=== PATIENT | male | born 1975 | race African-American/Black ===

== ENCOUNTER 2017-06-13 06:39 | Day surgery (SDC) | payer MEDICARE, MEDICAID ==
[2017-06-06 10:36] LABS: HEMATOCRIT 48.2 % (37.9-51.0); HEMOGLOBIN 15.8 g/dL (13.5-17.0); MEAN CORPUSCULAR HEMOGLOBIN 27.8 pg (27.0-33.4); MEAN CORPUSCULAR HGB CONC 32.8 g/dL (32.0-36.0); MEAN CORPUSCULAR VOLUME 85 fl (80-97); RED BLOOD COUNT 5.69 10^6/uL (4.35-5.55); RED CELL DISTRIBUTION WIDTH 16.2 % (11.5-14.0); WHITE BLOOD COUNT 5.7 10^3/uL (4.0-10.5)
[2017-06-06 11:01] LABS: PLATELET COUNT 210 10^3/uL (150-450)
[~2017-06-13 06:39] MED LIST: CEFAZOLIN 1 GM/D5W RTU 1 GM/50 ML RTUPB IV PRN; LACTATED RINGERS 1000 ML IV PRN; LIDOCAINE 0.5% INJ-PF (5 MG/ML) 50 ML SDV SUBCUT PRN
[2017-06-13] MEDS ORDERED: LIDOCAINE 1%/EPINEPHRINE INJ 20 ML VIAL ONE (06:49)
[2017-06-13] MEDS ORDERED: KETAMINE HCL INJ 500 MG/10 ML VIAL ONE (08:44)
[2017-06-13] MEDS ORDERED: FENTANYL CITRATE INJ/PF 100 MCG/2 ML AMPUL ONE (08:44)
[2017-06-13] MEDS ORDERED: MIDAZOLAM 2 MG/2 ML INJ ONE (08:44)
[2017-06-13] MEDS ORDERED: EPHEDRINE SULFATE INJ 50 MG/1 ML AMPULE ONE (08:44)
[2017-06-13] MEDS ORDERED: ACETAMINOPHEN 100 ML IV ONE (08:45)
[2017-06-13] MEDS ORDERED: PROPOFOL INJ 200 MG/20 ML VIAL IV ONE (08:45)
[2017-06-13] MEDS ORDERED: MEPERIDINE HCL/PF INJ 25 MG/1 ML DISP.SYRIN IV PRN (09:14)
[2017-06-13] MEDS ORDERED: PROMETHAZINE HCL INJ 25 MG/1 ML VIAL IV PRN ×2 (09:14)
[2017-06-13] MEDS ORDERED: FENTANYL CITRATE INJ/PF 100 MCG/2 ML AMPUL IV PRN ×3 (09:14)
[2017-06-13] MEDS ORDERED: DIPHENHYDRAMINE HCL 50 MG/ML VIAL IV PRN (09:14)
[2017-06-13] MEDS ORDERED: ONDANSETRON HCL INJ/PF 4 MG/2 ML SDV IV PRN ×2 (09:14→09:34)
[2017-06-13] MEDS ORDERED: OXYCODONE-ACETAMINOPHEN 5-325 MG TABLET PO PRN (09:34)
--- NOTE | 2017-06-13 09:34 | Discharge Summary ---
Discharge Summary (SDC) - Discharge Final Diagnosis: Lipomas of left and right upper arms Date of Surgery: 06/13/17 Discharge Date: 06/13/17 Condition: Stable Treatment or Instructions: Wound Care: Do not get incision sites wet for 48 hours. After 48 hours, you may shower leaving steri strips (paper bandaids) in place. Warm water and soap may wash over the area. Do not scrub. Pat dry. Cover if needed. Pain Management: You may take Toradol 10mg one pill by mouth every six hours as needed for pain. Follow Up: Follow up at [facility] with Steff Schultz PA-C in 7-10 days. Call clinic sooner with questions/concerns or if area is swelling, unusual bleeding, foul-smelling drainage. [phone] Prescriptions: Ketorolac Tromethamine [Toradol 10 mg Tablet] 10 mg PO Q6HP PRN #20 tablet PRN Reason: Referrals: JADE TENA MD [Primary Care Provider] - Discharge Diet: As Tolerated Discharge Activity: Walk Frequently Report the Following to Your Physician Immediately: Increase in Pain, Fever over 101 Degrees, Unusual Bleeding, Redness, Drainage-Foul Smelling
--- NOTE | 2017-06-13 09:40 | Operative Report ---
Operative Report DATE OF SURGERY: 06/13/17 PREOPERATIVE DIAGNOSIS: multiple lipomas POSTOPERATIVE DIAGNOSIS: Same OPERATION: Complete excision of right arm lipomas 2 left arm lipoma 1 SURGEON: BRIAN RIVAS 1ST LITHOGRAPHIC STRIPPER: JAD ZENDEJAS ANESTHESIA: LMAC TISSUE REMOVED OR ALTERED: Lipomas COMPLICATIONS: See below ESTIMATED BLOOD LOSS: Scant INTRAOPERATIVE FINDINGS: See below PROCEDURE: Patient was in the preop holding area with the 2 lipomas of the right arm and one lipoma the left arm were marked, and antimicrobial applied. The patient was taken the main operating room where LMAC anesthesia was induced. Arms abducted, and target tissue exposed. Right arm and left arm prepped and draped sterile fashion with Betadine Surgical plan surgical timeout were conducted Affected skin anesthetized with some plain lidocaine. All 2 cm incisions were made over the lipomas of the right upper extremity of the elbow, and the left upper extremity above the elbow. SubCutaneous mass consistent with lipoma were removed in their entirety using a combination of hemostat and scissor dissection. Specimens were sent to pathology in one container labeled lipomas Hemostasis was achieved with gentle compression, wounds closed with 3-0 Vicryl, benzoin, Steri-Strips. Dressings applied. Patient tolerated the procedure well, taken recovery in stable condition. The physician assistant manager, Ms. Navarrete, provided assistance during this case by: Assisting, retracting tissue, instillation of local anesthesia and closure of skin incisions.
[2017-06-13] MEDS ORDERED: GLYCOPYRROLATE INJ 0.4 MG/2 ML VIAL ONE (10:57)
[2017-06-13] MEDS ORDERED: METOCLOPRAMIDE HCL INJ/PF 10 MG/2 ML SDV ONE (10:57)
[2017-06-13] MEDS ORDERED: DEXAMETHASONE SOD PHOSPHATE INJ 4 MG/1 ML VIAL ONE (10:57)
[2017-06-13] MEDS ORDERED: LIDOCAINE 2% INJ-PF (20 MG/ML) 2 ML AMPUL ONE (10:57)
[2017-06-13 11:41] VITALS: BP 134/91
== END 2017-06-13 11:45 | disposition home or self-care (01) ==
LOC: OROUT 06:39
PROVIDERS: ATTEND Surgery
DX: D17.22 Benign lipomatous neoplasm of skin and subcutaneous tissue of left arm (principal); D17.21 Benign lipomatous neoplasm of skin and subcutaneous tissue of right arm
CPT/HCPCS: 36415; 85027; 88304 ×2; 11406; J2250; J0690; J1100; J3010; J3490 ×3; J2765; J2704; J0131; 400

== ENCOUNTER 2020-02-06 18:54 | Inpatient (IN) | payer MEDICARE, MEDICAID ==
--- NOTE | 2020-02-06 19:06 | ER Document Report ---
ED Medical Screen (RME) - General Chief Complaint: Syncope Stated Complaint: POSSIBLE SYNCOPE/FALL Time Seen by Provider: 02/06/20 19:02 Primary Care Provider: JADE TENA MD [Primary Care Provider] - Follow up as needed Mode of Arrival: Wheelchair Information source: Patient Notes: 45-year-old male presented to ED for complaint of severe shortness of breath n ear syncope. He states he was moving some stuff upstairs and also he was completely short of breath and felt like he was going to pass out. He also has pain to his left posterior calf. He states he was going up and down some stairs and he has been sedentary laying on the couch for a while. Patient is alert and oriented but is very diaphoretic. Her I have put EKG troponin and venous Doppler and at this time. I have let the area secretary know that I put in a venous Doppler at 7:05 PM. I have greeted and performed a rapid initial assessment of this patient. A comprehensive ED assessment and evaluation of the patient, analysis of test results and completion of medical decision making process will be conducted by an additional ED providers. TRAVEL OUTSIDE OF THE [place] IN LAST 30 DAYS: No - Related Data Allergies/Adverse Reactions: No Known Allergies Allergy (Unverified 06/06/17 08:44) Past Medical History - Past Medical History Cardiac Medical History: Denies: Hx Coronary Artery Disease, Hx Heart Attack, Hx Hypertension Pulmonary Medical History: Denies: Hx Asthma, Hx Bronchitis, Hx COPD, Hx Pneumonia Neurological Medical History: Denies: Hx Cerebrovascular Accident, Hx Seizures Musculoskeltal Medical History: Denies Hx Arthritis - Immunizations Hx Diphtheria, Pertussis, Tetanus Vaccination: Yes - 2014 Doctor's Discharge - Discharge Referrals: JADE TENA MD [Primary Care Provider] - Follow up as needed
[2020-02-06 20:45] LABS: ABSOLUTE LYMPHOCYTES (AUTO) 1.2 10^3/uL (0.5-4.7); ABSOLUTE MONOCYTES (AUTO) 0.4 10^3/uL (0.1-1.4); ABSOLUTE NEUT (AUTO) 1.9 10^3/uL (1.7-8.2); BASOPHILS % (AUTO) 0.5 % (0-2); EOSINOPHILS % (AUTO) 0.9 % (0-6); HEMATOCRIT 49.4 % (37.9-51.0); LYMPHOCYTES % (AUTO) 33.8 % (13-45); MEAN CORPUSCULAR HEMOGLOBIN 27.1 pg (27.0-33.4); MEAN CORPUSCULAR HGB CONC 32.5 g/dL (32.0-36.0); MEAN CORPUSCULAR VOLUME 84 fl (80-97); MONOCYTES % (AUTO) 10.5 % (3-13); PLATELET COUNT 152 10^3/uL (150-450); RED BLOOD COUNT 5.91 10^6/uL (4.35-5.55); RED CELL DISTRIBUTION WIDTH 16.2 % (11.5-14.0); SEGMENTED NEUTROPHILS % (AUTO) 54.3 % (42-78); TOTAL CELLS COUNTED % (AUTO) 100 %; WHITE BLOOD COUNT 3.5 10^3/uL (4.0-10.5)
[2020-02-06 20:59] LABS: ALBUMIN 4.7 g/dL (3.5-5.0); ALKALINE PHOSPHATASE 133 U/L (38-126); ANION GAP 13 (5-19); ASPARTATE AMINO TRANSFERASE 26 U/L (17-59); BILIRUBIN,DIRECT 0.1 mg/dL (0.0-0.4); BILIRUBIN,TOTAL 0.5 mg/dL (0.2-1.3); BLOOD UREA NITROGEN 10 mg/dL (7-20); CALCIUM 9.8 mg/dL (8.4-10.2); CARBON DIOXIDE 26 mmol/L (22-30); CHLORIDE 101 mmol/L (98-107); CREATINE KINASE 109 U/L (55-170); GLUCOSE 107 mg/dL (75-110); POTASSIUM 4.3 mmol/L (3.6-5.0)
[2020-02-06 21:10] LABS: CREATINE KINASE MB < 0.22 ng/mL (<4.55); TROPONIN I < 0.012 ng/mL
--- NOTE | 2020-02-06 21:30 | RADIOLOGY REPORT (SQ) ---
EXAM DESCRIPTION: VENOUS UNILATERAL LOWER CLINICAL HISTORY: 45 years Male; left calf pain TECHNIQUE: Multiple grayscale sonographic images of the leg were obtained utilizing a high-frequency linear array transducer supplemented with color Doppler, compression and augmentation techniques. COMPARISON: None. FINDINGS: Left leg veins: There is normal compression and augmentation as well as color flow in the common femoral vein, the profunda femoral vein in the proximal femoral vein. In the distal thigh there is hypoechoic noncompressible thrombus which becomes occlusive. This extends into the popliteal vein and into a gastrocnemius vein. Posterior tibial and peroneal veins are also noncompressible. This appears to extend to the lower leg. IMPRESSION: Acute DVT beginning in the left distal femoral vein and involving the popliteal vein and the calf veins. Preliminary results was given to the charge nurse by the certified neurodiagnostic technologist 02/06/2020 at 2011 hours.
--- NOTE | 2020-02-06 22:52 | ER Document Report ---
ED General - General Chief Complaint: Passed Out Prior to Arrival Stated Complaint: POSSIBLE SYNCOPE/FALL Time Seen by Provider: 02/06/20 19:02 Primary Care Provider: JADE TENA MD [ACTIVE STAFF] - Follow up as needed Mode of Arrival: Wheelchair TRAVEL OUTSIDE OF THE [place] IN LAST 30 DAYS: No - HPI Notes: Patient is a 45-year-old male with a past medical history of hypertension who presents with syncope and left leg pain. Patient is a very poor historian. He states that he has had left leg pain and swelling for a while and he has been doing warm compresses. Today, he was carrying water bottles up the stairs and passed out. He states he hit his head on the concrete. There is no laceration or bruising on his head. Patient is not on any blood thinners. He states he had shortness of breath earlier today. No cough. - Related Data Allergies/Adverse Reactions: No Known Allergies Allergy (Unverified 06/06/17 08:44) Past Medical History - General Information source: Patient - Social History Smoking Status: Never Smoker Chew tobacco use (# tins/day): No Frequency of alcohol use: None Drug Abuse: None Family History: Reviewed & Not Pertinent Patient has homicidal ideation: No - Past Medical History Cardiac Medical History: Denies: Hx Coronary Artery Disease, Hx Heart Attack, Hx Hypertension Pulmonary Medical History: Denies: Hx Asthma, Hx Bronchitis, Hx COPD, Hx Pneumonia Neurological Medical History: Denies: Hx Cerebrovascular Accident, Hx Seizures Musculoskeletal Medical History: Denies Hx Arthritis - Immunizations Hx Diphtheria, Pertussis, Tetanus Vaccination: Yes - 2014 Review of Systems - Review of Systems Notes: CONSTITUTIONAL: No fever, fatigue or weight loss. SKIN: No rash. HENT: No congestion, ear pain, or sore throat. EYES: No recent vision problems or eye pain. CARDIOVASCULAR: No chest pain or edema. RESPIRATORY: Positive shortness of breath. No cough. GASTROINTESTINAL: No abdominal pain, nausea, vomiting GENITOURINARY: No dysuria. MUSCULOSKELETAL: Pain to left calf. NEUROLOGIC: No seizures. No focal weakness or sensory changes. Positive for headache. HEMATOLOGIC: No unusual bruising or bleeding. PSYCHIATRIC: No depression or anxiety. Physical Exam - Vital signs Vitals: Resp Pulse Ox 20 96 02/06/20 20:22 02/06/20 20:22 - General General appearance: Appears well Notes: VITAL SIGNS: Mild tachycardia. GENERAL: No acute distress, non-toxic appearance. HEAD: Normal with no signs of head trauma. EYES: Conjunctiva normal, no discharge. EARS: Hearing grossly intact. NOSE: Normal. NECK: Normal range of motion, no tenderness, supple, no lymphadenopathy, No adenopathy, no JVD. CHEST: Clear breath sounds bilaterally. No wheezes, rales, or rhonchi. CARDIAC: Regular rate and rhythm. S1 and S2, without murmurs, gallops, or rubs. VASCULAR: Tenderness to left posterior calf with erythema. No significant swelling. Pulses normal. ABDOMEN: Normal and soft with no tenderness GENITOURINARY: Normal, No tenderness MUSCULOSKELETAL: Good range of motion of all major joints. Extremities without clubbing, cyanosis or edema. NEUROLOGICAL: Alert and oriented x 3. No focal sensory or strength deficits. Speech normal. Follows commands appropriately. PSYCHIATRIC: Normal Affect, judgement and mood. SKIN: Normal appearance with no rashes or lesions. Course - Re-evaluation Re-evalutation: 02/07/20 02:59 Patient has a DVT. He states he was short of breath today and passed out. I ordered a CTA to rule out PE immediately. Patient has some mild tachycardia. He is on room air with O2 saturations in the 90s. Patient also had a head CT as he states he had syncope today. Patient CTA shows a pulmonary embolism. I immediately ordered heparin bolus and drip. I discussed with Ceci and [facility]. They were both on regional diversion and are not taking transfers. I then called [facility] and talked to the hospitalist. He states that I need to speak with IR first as he will not take the patient unless he needs to have some kind of procedure. I spoke with Dr. Rand from IR who reviewed the imaging. He did not think that patient had any right heart strain. He did not think that he needed any acute intervention. I discussed all this with the hospitalist who recommended that I also call Vascular. I discussed with Dr. Pate from vascular who also stated that he likely does not need any acute intervention. Patient continues to be on room air with pulse ox in the mid 90s. I informed him of all the results. I also discussed with his mother on the phone. Patient will be admitted. - Vital Signs Vital signs: Temp Pulse Resp BP Pulse Ox 19 119/103 H 97 02/07/20 02:01 02/07/20 02:01 02/07/20 02:01 - Laboratory Result Diagrams: 02/06/20 20:15 02/06/20 20:15 Laboratory results interpreted by me: 02/06/20 02/06/20 20:15 20:15 WBC 3.5 L RBC 5.91 H RDW 16.2 H Alkaline Phosphatase 133 H - Diagnostic Test Radiology reviewed: Image reviewed, Reports reviewed - EKG Interpretation by Me EKG shows normal: Sinus rhythm Rate: Tachycardia Rhythm: NSR Additional EKG results interpreted by me: 02/06/20 22:54 Sinus tachycardia at a rate of 110. QTc 466. No acute ST changes. No previous EKG available for comparison. Discharge - Discharge Clinical Impression: Saddle pulmonary embolus Qualifiers: Chronicity: acute Acute cor pulmonale presence: unspecified Qualified Code(s): I26.92 - Saddle embolus of pulmonary artery without acute cor pulmonale Syncope Qualifiers: Syncope type: unspecified Qualified Code(s): R55 - Syncope and collapse Left femoral vein DVT Qualifiers: Chronicity: acute Qualified Code(s): I82.412 - Acute embolism and thrombosis of left femoral vein Condition: Serious Disposition: ADMITTED INPATIENT Admitting Provider: Tom (Hospitalist) Unit Admitted: IMCU Referrals: JADE TENA MD [ACTIVE STAFF] - Follow up as needed
[2020-02-06] MEDS ORDERED: MORPHINE SULFATE 10 MG/ML INJ IV ONE (23:19)
[2020-02-06 23:54] LABS: INTERNATIONAL RATION (INR) 1.03; PROTHROMBIN TIME 13.7 SEC (11.4-15.4)
--- NOTE | 2020-02-06 23:56 | RADIOLOGY REPORT (SQ) ---
EXAM DESCRIPTION: CT HEAD WITHOUT IV CONTRAST COMPLETED DATE/TME: 02/06/2020 23:39 CLINICAL HISTORY: fall, head injury COMPARISON: None available TECHNIQUE: Axial CT of the head obtained from the skull apex to the skull base without contrast. FINDINGS: No acute intracranial hemorrhage identified. No mass, mass effect, shift of the midline, abnormal extra-axial fluid collection or CT evidence of acute ischemic change identified. The ventricular system is unremarkable. No acute abnormalities of the supratentorial white matter, basal ganglia, cerebellum, or brainstem. The visualized paranasal sinuses and the mastoid air cells are relatively well aerated. No skull fracture identified. Visualized orbits and globes are unremarkable. IMPRESSION: 1. No acute intracranial abnormality identified. This exam was performed according to our departmental dose-optimization program, which includes automated exposure control, adjustment of the mA and/or kV according to patient size and/or use of iterative reconstruction technique.
--- NOTE | 2020-02-07 00:08 | RADIOLOGY REPORT (SQ) ---
EXAM DESCRIPTION: CT CHEST ANGIOGRAPHY WITHOUT THEN WITH IV CONTRAST COMPLETED DATE/TME: 02/06/2020 23:39 EXAM DESCRIPTION: CTA CHEST CLINICAL HISTORY: left DVT, syncope, and sob COMPARISON: None Available. TECHNIQUE: CTA of the chest obtained following the uncomplicated intravenous administration of 85 mL Omnipaque 350. 3-D/MIP reformatted images of the chest available for evaluation. FINDINGS: Chest: Pulmonary arteries: Contrast bolus is adequate. Saddle pulmonary embolus with extensive pulmonary emboli throughout the main, left, right, lobar, segmental, and subsegmental pulmonary arterial branches. Dilation of the main pulmonary artery could be seen with pulmonary arterial hypertension. Thyroid:No abnormalities of the visualized thyroid. Great Vessels:Great vessels have normal anatomic configuration. Thoracic Aorta:No abnormalities of the thoracic aorta identified. Heart:No cardiomegaly, significant pericardial effusion, or coronary artery atherosclerosis. Mild flattening of the intraventricular septum and may indicate mild right heart strain. Lymph Nodes:No enlarged mediastinal lymph nodes identified. Esophagus:No abnormalities of the esophagus identified. Other:No additional findings. Lungs:No airspace opacities identified. Pleura:No pleural effusion or pneumothorax. Trachea/Airways:No abnormalities of the visualized trachea or airways. Bones:No destructive osseous lesions. Upper Abdomen:Limited images of the upper abdomen demonstrate no definite abnormalities of visualized portions of the liver, gallbladder, pancreas, spleen, adrenal glands, or kidneys. IMPRESSION: 1. Saddle pulmonary embolus with extensive clot burden throughout the pulmonary arteries. Mild right heart strain. This exam was performed according to our departmental dose-optimization program, which includes automated exposure control, adjustment of the mA and/or kV according to patient size and/or use of iterative reconstruction technique.
[2020-02-07] MEDS ORDERED: HEPARIN SOD (PORCINE) 1,000 UNIT/ML 10 ML VIAL IV ONE (00:19)
[2020-02-07] MEDS: HEPARIN SODIUM,PORCINE/D5W 25,000 UNIT/250 ML RTUINJ IV PRN ×2 (01:17→16:35)
[2020-02-07] MEDS ORDERED: ACETAMINOPHEN 325 MG TABLET PO PRN (03:14)
[2020-02-07] MEDS ORDERED: ONDANSETRON 4 MG TAB.RAPDIS PO PRN (03:14)
[2020-02-07] MEDS ORDERED: ONDANSETRON HCL INJ/PF 4 MG/2 ML SDV IV PRN (03:14)
[2020-02-07 03:16] LABS: APPEARANCE,URINE CLEAR; BILIRUBIN,URINE NEGATIVE (NEGATIVE); COLOR,URINE YELLOW; GLUCOSE, URINE NEGATIVE (NEGATIVE); KETONES,URINE 80 mg/dL (NEGATIVE); LEUKOCYTE ESTERASE,URINE NEGATIVE (NEGATIVE); NITRITE,URINE NEGATIVE (NEGATIVE); PROTEIN,URINE NEGATIVE (NEGATIVE)
[2020-02-07] MEDS ORDERED: HEPARIN SOD (PORCINE) 1,000 UNIT/ML 10 ML VIAL IV PRN (03:25)
--- NOTE | 2020-02-07 03:25 | PDOC H&P ---
History of Present Illness Admission Date/PCP: 02/07/20 02:15 History of Present Illness: JEFF PRESSLEY is a 45 year old male with past medical history significant for hypertension who presents with a 1 week history of progressive left lower extremity pain and edema/nausea/vomiting/shortness of breath/episodic syncope. Patient found to have saddle PE and extensive left lower extremity DVT clot burden on CTPA and left lower extremity PVL respectively. Patient denies any history of clots in the past denies any family history of clots. He denies any medical history whatsoever except for hypertension and does not take any medications for this. Per my request, ED physician spoke with vascular surgeon and interventional radiologist at [facility] both of whom stated the patient does not need to be transferred and they also disagreed with the notion that the patient has right heart strain which was mentioned by the radiologist on the CTPA dictation. They stated patient should be managed here on anticoagulation. Patient admitted on heparin drip, sent to IMCU. Needs follow-up with hematology. Hypercoagulable work-up started. Past Medical History Cardiac Medical History: Denies: Coronary Artery Disease, Myocardial Infarction, Hypertension Pulmonary Medical History: Denies: Asthma, Bronchitis, Chronic Obstructive Pulmonary Disease (COPD), Pneumonia Neurological Medical History: Denies: Seizures Musculoskeltal Medical History: Denies: Arthritis Hematology: Denies: Anemia Past Surgical History Past Surgical History: Reports: None Social History Information Source: Patient, Emergency Med Personnel Lives with: Family Smoking Status: Never Smoker Electronic Cigarette use?: No Frequency of Alcohol Use: None Hx Recreational Drug Use: No - Advance Directive Resuscitation Status: Full Code Surrogate healthcare decision maker:: Admitting diagnosis: Saddle PE All aspects of code status discussed with patient/POA including cardioversion, chest compressions, and intubation and the patient/POA indicated they wish to be full code MPOA is designated as: Any Leija Time spent: Greater than 16 minutes Family History Family History: Reviewed & Not Pertinent Parental Family History Reviewed: Yes Children Family History Reviewed: Yes Sibling(s) Family History Reviewed.: Yes Medication/Allergy Home Medications: Ketorolac Tromethamine [Toradol 10 mg Tablet] 10 mg PO Q6HP PRN #20 tablet 06/13/17 Allergies/Adverse Reactions: No Known Allergies Allergy (Unverified 06/06/17 08:44) Review of Systems All systems: reviewed and no additional remarkable complaints except as stated - Per HPI otherwise negative Physical Exam Vital Signs: Temp Pulse Resp BP Pulse Ox 13 129/101 H 95 02/07/20 03:01 02/07/20 03:01 02/07/20 03:01 Intake & Output 02/05/20 02/06/20 02/07/20 06:59 06:59 06:59 Weight 87.8 kg Exam: General appearance: PRESENT: no acute distress, well-developed, well-nourished, -[place] male Head exam: PRESENT: atraumatic, normocephalic Eye exam: PRESENT: conjunctiva pink. ABSENT: scleral icterus Mouth exam: PRESENT: moist Respiratory exam: PRESENT: clear to auscultation rahda. ABSENT: rales, rhonchi, wheezes Cardiovascular exam: PRESENT: RRR. ABSENT: diastolic murmur, rubs, systolic murmur GI/Abdominal exam: PRESENT: normal bowel sounds, soft. ABSENT: distended, guarding, mass, organolmegaly, rebound, tenderness Neurological exam: PRESENT: alert, awake, oriented to person, oriented to place, oriented to time, oriented to situation Psychiatric exam: PRESENT: appropriate affect, normal mood Skin exam: PRESENT: dry, intact, warm; left lower extremity with significant pitting edema and mild tenderness Results Laboratory Results: 02/06/20 20:15 02/06/20 20:15 02/06/20 02/06/20 20:15 20:15 WBC 3.5 L RBC 5.91 H Hgb 16.0 Hct 49.4 MCV 84 MCH 27.1 MCHC 32.5 RDW 16.2 H Plt Count 152 Seg Neutrophils % 54.3 Sodium 140.2 Potassium 4.3 Chloride 101 Carbon Dioxide 26 Anion Gap 13 BUN 10 Creatinine 1.18 Est GFR ( Amer) > 60 Glucose 107 Calcium 9.8 Total Bilirubin 0.5 AST 26 Alkaline Phosphatase 133 H Total Protein 8.0 Albumin 4.7 02/06/20 02/06/20 20:15 20:15 Creatine Kinase 109 CK-MB (CK-2) < 0.22 Troponin I < 0.012 Impressions: Venous Doppler Study 02/06/20 19:03 IMPRESSION: Acute DVT beginning in the left distal femoral vein and involving the popliteal vein and the calf veins. Preliminary results was given to the charge nurse by the dairy technologist 02/06/2020 at 2011 hours. Chest/Abdomen CTA 02/06/20 22:28 IMPRESSION: 1. Saddle pulmonary embolus with extensive clot burden throughout the pulmonary arteries. Mild right heart strain. This exam was performed according to our departmental dose-optimization program, which includes automated exposure control, adjustment of the mA and/or kV according to patient size and/or use of iterative reconstruction technique. Head CT 02/06/20 22:29 IMPRESSION: 1. No acute intracranial abnormality identified. This exam was performed according to our departmental dose-optimization program, which includes automated exposure control, adjustment of the mA and/or kV according to patient size and/or use of iterative reconstruction technique. Assessment and Plan - Diagnosis (1) Saddle pulmonary embolus Qualifiers: Chronicity: acute Acute cor pulmonale presence: unspecified Qualified Code(s): I26.92 - Saddle embolus of pulmonary artery without acute cor pulmonale Is this a current diagnosis for this admission?: Yes Plan: He of previous DVT/PE per patient Started on heparin drip, likely patient will need permanent anticoagulation with oral agent at discharge Hypercoagulability work-up started Echocardiogram to assess for right heart strain CTPA and lower extremity PVL reviewed (2) Left femoral vein DVT Qualifiers: Chronicity: acute Qualified Code(s): I82.412 - Acute embolism and thrombosis of left femoral vein Is this a current diagnosis for this admission?: Yes Plan: Seen on left lower extremity PVL Anticoagulation as above (3) Hypertension Qualifiers: Hypertension type: essential hypertension Qualified Code(s): I10 - Essential (primary) hypertension Is this a current diagnosis for this admission?: Yes Plan: Stable (4) Syncope Qualifiers: Syncope type: unspecified Qualified Code(s): R55 - Syncope and collapse Is this a current diagnosis for this admission?: Yes Plan: Presumably due to PE Echo as above - Time Time Spent with patient: 35 or more minutes Medications reviewed and adjusted accordingly: Yes Anticipated Discharge Disposition: Home, Self Care Anticipated Discharge Timeframe: within 72 hours - Inpatient Certification Based on my medical assessment, after consideration of the patient's comorbidities, presenting symptoms, or acuity I expect that the services needed warrant INPATIENT care.: Yes I certify that my determination is in accordance with my understanding of Medicare's requirements for reasonable and necessary INPATIENT services [42 CFR 412.3e].: Yes Medical Necessity: Significant Comorbidiites Make Outpatient Treatment Too Risky, Need Close Monitoring Due to Risk of Patient Decompensation, Need For Continuous Telemetry Monitoring, Risk of Complication if Not Cared For in Hospital, Risk of Diagnosis Which Will Require Inpatient Eval/Care/Monitoring
[2020-02-07 03:26] LABS: URINE SPECIFIC GRAVITY > 1.060
[2020-02-07 07:40] LABS: ABSOLUTE LYMPHOCYTES (AUTO) 1.8 10^3/uL (0.5-4.7); ABSOLUTE MONOCYTES (AUTO) 0.3 10^3/uL (0.1-1.4); ABSOLUTE NEUT (AUTO) 1.3 10^3/uL (1.7-8.2); BASOPHILS % (AUTO) 0.4 % (0-2); EOSINOPHILS % (AUTO) 0.8 % (0-6); HEMATOCRIT 46.5 % (37.9-51.0); HEMOGLOBIN 15.4 g/dL (13.5-17.0); LYMPHOCYTES % (AUTO) 50.9 % (13-45); MEAN CORPUSCULAR HEMOGLOBIN 27.3 pg (27.0-33.4); MEAN CORPUSCULAR HGB CONC 33.1 g/dL (32.0-36.0); MEAN CORPUSCULAR VOLUME 82 fl (80-97); MONOCYTES % (AUTO) 9.6 % (3-13); PLATELET COUNT 143 10^3/uL (150-450); RED BLOOD COUNT 5.64 10^6/uL (4.35-5.55); RED CELL DISTRIBUTION WIDTH 16.3 % (11.5-14.0); SEGMENTED NEUTROPHILS % (AUTO) 38.3 % (42-78); TOTAL CELLS COUNTED % (AUTO) 100 %; WHITE BLOOD COUNT 3.5 10^3/uL (4.0-10.5)
[2020-02-07] MEDS: OXYCODONE-ACETAMINOPHEN 5-325 MG TABLET PO PRN ×3 (08:21→22:27)
[2020-02-07 08:25] LABS: ANION GAP 11 (5-19); BLOOD UREA NITROGEN 10 mg/dL (7-20); CALCIUM 9.8 mg/dL (8.4-10.2); CARBON DIOXIDE 26 mmol/L (22-30); CHLORIDE 102 mmol/L (98-107); GLUCOSE 87 mg/dL (75-110); POTASSIUM 3.7 mmol/L (3.6-5.0)
--- NOTE | 2020-02-07 09:20 | EKG REPORT ---
SEVERITY:- BORDERLINE ECG - SINUS TACHYCARDIA BORDERLINE T ABNORMALITIES, INFERIOR LEADS : Confirmed by: Elaine Baird 07-Feb-2020 09:19:29
[2020-02-07] MEDS: DOCUSATE SODIUM 100 MG CAPSULE PO SCH (09:26)
--- NOTE | 2020-02-07 17:42 | Progress Note ---
Provider Note Provider Note: Patient continues on heparin drip. Troponins normal. He is not short of breath. He denies any chest pain. We will probably leave him on the heparin drip for a few days to ensure his stability and then switch him over to an oral anticoagulant. Hypercoagulable work-up is pending.
[2020-02-08] MEDS ORDERED: INFLUENZA QUAD (6MOS+) 2020-21 VAC 0.5 ML SYR IM ONE (08:00)
[2020-02-08] MEDS: OXYCODONE-ACETAMINOPHEN 5-325 MG TABLET PO PRN ×3 (08:45→22:16)
[2020-02-08 09:11] LABS: HEMATOCRIT 46.5 % (37.9-51.0); HEMOGLOBIN 15.3 g/dL (13.5-17.0); MEAN CORPUSCULAR HEMOGLOBIN 27.2 pg (27.0-33.4); MEAN CORPUSCULAR VOLUME 82 fl (80-97); PLATELET COUNT 141 10^3/uL (150-450); RED BLOOD COUNT 5.65 10^6/uL (4.35-5.55); RED CELL DISTRIBUTION WIDTH 16.3 % (11.5-14.0); WHITE BLOOD COUNT 2.7 10^3/uL (4.0-10.5)
[2020-02-08] MEDS: DOCUSATE SODIUM 100 MG CAPSULE PO SCH ×2 (09:38→13:08)
[2020-02-08 10:01] LABS: ABSOLUTE LYMPHOCYTES# (MANUAL) 1.5 10^3/uL (0.5-4.7); ABSOLUTE MONOCYTES # (MANUAL) 0.1 10^3/uL (0.1-1.4); BASOPHILS % (MANUAL) 0 % (0-2); EOSINOPHILS % (MANUAL) 3 % (0-6); LYMPHOCYTES % (MANUAL) 54 % (13-45); MONOCYTES % (MANUAL) 4 % (3-13); SEGMENTED NEUTROPHILS % (MAN) 39 % (42-78); TOTAL CELLS COUNTED 100
[2020-02-08 10:02] LABS: ANISOCYTOSIS 1+; OVALOCYTES 1+; PLATELET COMMENT ADEQUATE
[2020-02-08 10:20] LABS: ANION GAP 8 (5-19); BLOOD UREA NITROGEN 10 mg/dL (7-20); CALCIUM 9.1 mg/dL (8.4-10.2); CARBON DIOXIDE 29 mmol/L (22-30); CHLORIDE 101 mmol/L (98-107); GLUCOSE 114 mg/dL (75-110); PHOSPHORUS 2.5 mg/dL (2.5-4.5); POTASSIUM 3.9 mmol/L (3.6-5.0)
[2020-02-08] MEDS: HEPARIN SODIUM,PORCINE/D5W 25,000 UNIT/250 ML RTUINJ IV PRN (10:51)
--- NOTE | 2020-02-08 17:51 | PDOC PROGRESS REPORT ---
Subjective Date:: 02/08/20 Subjective:: No adverse events overnight. No new complaints. No chest pain or shortness of breath. No hypoxia. He has not been on any long trips. He said he does not smoke. He also does not work. I asked him what he does and he says that he sits at home in a chair all day watching TV. He does not know who his doctor is. He does not know if he is on any insurance. Reason For Visit: SADDLE PULMONARY EMBOLUS,SYNCOPE,LEFT FEMORAL VEIN Physical Exam Vital Signs: Temp Pulse Resp BP Pulse Ox 98.5 F 109 H 12 114/69 99 02/08/20 11:28 02/08/20 14:00 02/08/20 11:28 02/08/20 11:28 02/08/20 11:28 Intake & Output 02/07/20 02/08/20 02/09/20 06:59 06:59 06:59 Intake Total 153 565 360 Output Total 0 Balance 153 565 360 Weight 87.6 kg 89.4 kg General appearance: PRESENT: no acute distress, cooperative, obese Respiratory exam: PRESENT: clear to auscultation radha, symmetrical, unlabored. ABSENT: accessory muscle use, chest wall tenderness, crackles, prolonged expiratory phas, rhonchi, tachypnea, wheezes Cardiovascular exam: PRESENT: RRR, +S1, +S2 Pulses: PRESENT: normal carotid pulses Vascular exam: PRESENT: normal capillary refill GI/Abdominal exam: PRESENT: normal bowel sounds, soft. ABSENT: distended, guarding, rebound, tenderness Extremities exam: PRESENT: pedal edema, +1 edema - Left lower extremity. ABSENT: clubbing Musculoskeletal exam: PRESENT: normal inspection. ABSENT: deformity Neurological exam: PRESENT: awake, oriented to person, oriented to place, oriented to situation Psychiatric exam: PRESENT: flat affect Skin exam: PRESENT: dry, warm Results Laboratory Results: 02/08/20 08:31 02/08/20 09:23 02/08/20 02/08/20 02/08/20 08:31 08:31 09:23 WBC 2.7 L RBC 5.65 H Hgb 15.3 Hct 46.5 MCV 82 MCH 27.2 MCHC 33.0 RDW 16.3 H Plt Count 141 L Seg Neutrophils % Not Reportable Sodium Cancelled 137.7 Potassium Cancelled 3.9 Chloride Cancelled 101 Carbon Dioxide Cancelled 29 Anion Gap Cancelled 8 BUN Cancelled 10 Creatinine Cancelled 1.02 Est GFR ( Amer) Cancelled > 60 Est GFR (Non-Af Amer) Cancelled Glucose Cancelled 114 H Calcium Cancelled 9.1 Phosphorus Cancelled 2.5 Magnesium Cancelled 1.8 02/06/20 02/06/20 20:15 20:15 Creatine Kinase 109 CK-MB (CK-2) < 0.22 Troponin I < 0.012 Impressions: Venous Doppler Study 02/06/20 19:03 IMPRESSION: Acute DVT beginning in the left distal femoral vein and involving the popliteal vein and the calf veins. Preliminary results was given to the charge nurse by the neurodiagnostic technologist 02/06/2020 at 2011 hours. Chest/Abdomen CTA 02/06/20 22:28 IMPRESSION: 1. Saddle pulmonary embolus with extensive clot burden throughout the pulmonary arteries. Mild right heart strain. This exam was performed according to our departmental dose-optimization program, which includes automated exposure control, adjustment of the mA and/or kV according to patient size and/or use of iterative reconstruction technique. Head CT 02/06/20 22:29 IMPRESSION: 1. No acute intracranial abnormality identified. This exam was performed according to our departmental dose-optimization program, which includes automated exposure control, adjustment of the mA and/or kV according to patient size and/or use of iterative reconstruction technique. Assessment and Plan - Diagnosis (1) Saddle pulmonary embolus Qualifiers: Chronicity: acute Acute cor pulmonale presence: without acute cor pulmonale Qualified Code(s): I26.92 - Saddle embolus of pulmonary artery without acute c or pulmonale Is this a current diagnosis for this admission?: Yes (2) Left femoral vein DVT Qualifiers: Chronicity: acute Qualified Code(s): I82.412 - Acute embolism and thrombosis of left femoral vein Is this a current diagnosis for this admission?: Yes (3) Obesity (BMI 30.0-34.9) Is this a current diagnosis for this admission?: Yes (4) Sedentary lifestyle Is this a current diagnosis for this admission?: Yes (5) Hypertension Qualifiers: Hypertension type: essential hypertension Qualified Code(s): I10 - Essen tial (primary) hypertension Is this a current diagnosis for this admission?: Yes - Plan Summary Summary: He has extensive bilateral pulmonary emboli with a saddle PE, as well as extensive left lower extremity thrombus. We will continue the heparin drip for couple more days to make sure the clots are stabilized, and then if he still doing okay we will transition him over to Eliquis. We have him in the computer is having Medicaid so he should be able to obtain this without any trouble. I have recommended that he get some physical activity into his life somehow. - Time Time Spent with patient: 15-24 minutes Anticipated Discharge Disposition: Home, Self Care Anticipated Discharge Timeframe: within 72 hours
[2020-02-09] MEDS: OXYCODONE-ACETAMINOPHEN 5-325 MG TABLET PO PRN ×2 (07:38→17:44)
[2020-02-09] MEDS: HEPARIN SODIUM,PORCINE/D5W 25,000 UNIT/250 ML RTUINJ IV PRN (07:43)
[2020-02-09 07:53] LABS: ABSOLUTE EOSINOPHILS # (AUTO) 0.1 10^3/uL (0.0-0.6); ABSOLUTE LYMPHOCYTES (AUTO) 1.2 10^3/uL (0.5-4.7); ABSOLUTE MONOCYTES (AUTO) 0.2 10^3/uL (0.1-1.4); ABSOLUTE NEUT (AUTO) 0.7 10^3/uL (1.7-8.2); BASOPHILS % (AUTO) 0.6 % (0-2); EOSINOPHILS % (AUTO) 2.7 % (0-6); HEMATOCRIT 43.7 % (37.9-51.0); HEMOGLOBIN 14.6 g/dL (13.5-17.0); LYMPHOCYTES % (AUTO) 56.7 % (13-45); MEAN CORPUSCULAR HEMOGLOBIN 27.8 pg (27.0-33.4); MEAN CORPUSCULAR HGB CONC 33.5 g/dL (32.0-36.0); MEAN CORPUSCULAR VOLUME 83 fl (80-97); MONOCYTES % (AUTO) 9.5 % (3-13); PLATELET COUNT 119 10^3/uL (150-450); RED BLOOD COUNT 5.26 10^6/uL (4.35-5.55); SEGMENTED NEUTROPHILS % (AUTO) 30.5 % (42-78); TOTAL CELLS COUNTED % (AUTO) 100 %; WHITE BLOOD COUNT 2.2 10^3/uL (4.0-10.5)
[2020-02-09 08:15] LABS: ANION GAP 7 (5-19); BLOOD UREA NITROGEN 9 mg/dL (7-20); CALCIUM 8.8 mg/dL (8.4-10.2); CARBON DIOXIDE 26 mmol/L (22-30); CHLORIDE 104 mmol/L (98-107); GLUCOSE 88 mg/dL (75-110)
[2020-02-09] MEDS: DOCUSATE SODIUM 100 MG CAPSULE PO SCH (09:37)
[2020-02-09 10:03] LABS: APPEARANCE,URINE SLIGHTLY-CLOUDY; BILIRUBIN,URINE NEGATIVE (NEGATIVE); COLOR,URINE YELLOW; GLUCOSE, URINE NEGATIVE (NEGATIVE); KETONES,URINE NEGATIVE (NEGATIVE); LEUKOCYTE ESTERASE,URINE NEGATIVE (NEGATIVE); NITRITE,URINE NEGATIVE (NEGATIVE); PROTEIN,URINE 30 mg/dL (NEGATIVE); URINE SPECIFIC GRAVITY 1.031
--- NOTE | 2020-02-09 19:21 | PDOC PROGRESS REPORT ---
Subjective Date:: 02/09/20 Subjective:: No adverse events overnight. No new complaints. Vital signs have been stable. No chest pain or shortness of breath. SPO2 has been excellent on room air. Reason For Visit: SADDLE PULMONARY EMBOLUS,SYNCOPE,LEFT FEMORAL VEIN Physical Exam Vital Signs: Temp Pulse Resp BP Pulse Ox 98.4 F 91 17 114/71 98 02/09/20 11:36 02/09/20 14:00 02/09/20 11:36 02/09/20 11:36 02/09/20 11:36 Intake & Output 02/08/20 02/09/20 02/10/20 06:59 06:59 06:59 Intake Total 565 2302 1522 Balance 565 2302 1522 Weight 89.4 kg 90.9 kg General appearance: PRESENT: no acute distress, cooperative, obese Respiratory exam: PRESENT: clear to auscultation radha, symmetrical, unlabored. ABSENT: accessory muscle use, chest wall tenderness, crackles, prolonged expiratory phas, rhonchi, tachypnea, wheezes Cardiovascular exam: PRESENT: RRR, +S1, +S2 Pulses: PRESENT: normal carotid pulses Vascular exam: PRESENT: normal capillary refill GI/Abdominal exam: PRESENT: normal bowel sounds, soft. ABSENT: distended, guarding, rebound, tenderness Extremities exam: PRESENT: pedal edema, +1 edema - Left lower extremity. ABSENT: clubbing Musculoskeletal exam: PRESENT: normal inspection. ABSENT: deformity Neurological exam: PRESENT: awake, oriented to person, oriented to place, oriented to situation Psychiatric exam: PRESENT: flat affect Skin exam: PRESENT: dry, warm Results Laboratory Results: 02/09/20 07:30 02/09/20 07:30 02/09/20 02/09/20 02/09/20 07:30 07:30 09:30 WBC 2.2 L RBC 5.26 Hgb 14.6 Hct 43.7 MCV 83 MCH 27.8 MCHC 33.5 RDW 16.0 H Plt Count 119 L Seg Neutrophils % 30.5 L Sodium 136.9 L Potassium 4.0 Chloride 104 Carbon Dioxide 26 Anion Gap 7 BUN 9 Creatinine 1.05 Est GFR ( Amer) > 60 Glucose 88 Calcium 8.8 Urine Color YELLOW Urine Appearance SLIGHTLY-CLOUDY Urine pH 5.0 Ur Specific [place] 1.031 Urine Protein 30 H Urine Glucose (UA) NEGATIVE Urine Ketones NEGATIVE Urine Blood NEGATIVE Urine Nitrite NEGATIVE Ur Leukocyte Esterase NEGATIVE Urine WBC (Auto) 1 Urine RBC (Auto) 2 02/06/20 02/06/20 20:15 20:15 Creatine Kinase 109 CK-MB (CK-2) < 0.22 Troponin I < 0.012 Impressions: Venous Doppler Study 02/06/20 19:03 IMPRESSION: Acute DVT beginning in the left distal femoral vein and involving the popliteal vein and the calf veins. Preliminary results was given to the charge nurse by the nuclear technologist 02/06/2020 at 2011 hours. Chest/Abdomen CTA 02/06/20 22:28 IMPRESSION: 1. Saddle pulmonary embolus with extensive clot burden throughout the pulmonary arteries. Mild right heart strain. This exam was performed according to our departmental dose-optimization program, which includes automated exposure control, adjustment of the mA and/or kV according to patient size and/or use of iterative reconstruction technique. Head CT 02/06/20 22:29 IMPRESSION: 1. No acute intracranial abnormality identified. This exam was performed according to our departmental dose-optimization program, which includes automated exposure control, adjustment of the mA and/or kV according to patient size and/or use of iterative reconstruction technique. Assessment and Plan - Diagnosis (1) Saddle pulmonary embolus Qualifiers: Chronicity: acute Acute cor pulmonale presence: without acute cor pulmonale Qualified Code(s): I26.92 - Saddle embolus of pulmonary artery without acute cor pulmonale Is this a current diagnosis for this admission?: Yes (2) Left femoral vein DVT Qualifiers: Chronicity: acute Qualified Code(s): I82.412 - Acute embolism and thrombosis of left femoral vein Is this a current diagnosis for this admission?: Yes (3) Obesity (BMI 30.0-34.9) Is this a current diagnosis for this admission?: Yes (4) Sedentary lifestyle Is this a current diagnosis for this admission?: Yes (5) Hypertension Qualifiers: Hypertension type: essential hypertension Qualified Code(s): I10 - Es sential (primary) hypertension Is this a current diagnosis for this admission?: Yes - Plan Summary Summary: He has extensive bilateral pulmonary emboli with a saddle PE, as well as extensive left lower extremity thrombus. We will continue the heparin drip for another day to make sure the clots are stabilized, and then if he still doing okay we will transition him over to Eliquis. We have him in the computer is having Medicaid so he should be able to obtain this without any trouble. I have recommended that he get some physical activity into his life somehow. Anticipate discharge home tomorrow. - Time Time Spent with patient: 15-24 minutes Anticipated Discharge Disposition: Home, Self Care Anticipated Discharge Timeframe: within 24 hours
--- NOTE | 2020-02-09 19:55 | XCELERA REPORT ---
[address] [address] Transthoracic Echocardiogram Report Name: JEFF PRESSLEY Age: 45 yrs Gender: Male : 1975 Patient Status: Inpatient Patient Location: [address] [place], [place] [address] Study Date: 02/09/2020 09:54 AM Height: 66 in Weight: 193 lb BSA: 2.0 m2 Procedure: A two-dimensional transthoracic echocardiogram with color flow and Doppler was performed. The study was technically difficult with many images being suboptimal in quality. Reason For Study: Saddle PE History: Saddle PE. Ordering Physician: LETICIA ZUNIGA Performed By: Siobhan Arechiga Interpretation Summary The left ventricle is normal in size. There is normal left ventricular wall thickness. Left ventricular systolic function is normal. LV EF is 55% to 60% Doppler measurements suggest impaired left ventricular relaxation, which is associated with grade I/IV or mild diastolic dysfunction The left ventricular wall motion is normal. There is no thrombus. No ASD,VSD or PFO seen The right ventricle is normal in size and function. The right atrium is normal. The left atrial size is normal. There is no evidence of mitral valve prolapse. There is no vegetation seen on the mitral valve. There is no mitral valve stenosis. There is a trace amount of mitral regurgitation There is no aortic valvular vegetation. There is no aortic valve stenosis No aortic regurgitation is present. There is no tricuspid stenosis. There is a trace to mild amount of tricuspid regurgitation There is mild pulmonary hypertension by echo RVSP is 33 to 38 mm of Hg , with RA mean of 0 to 5. There is no pulmonic valvular stenosis. There is no pulmonic valvular regurgitation. The aortic root is normal size. The inferior vena cava appeared small and collapsed with respiration (RAP 0-5 mmHg) There is no pericardial effusion. MMode/2D Measurements & Calculations RVDd: 2.9 cm LVIDd: 4.9 cm FS: 28.9 % Ao root diam: 2.9 cm IVSd: 1.1 cm LVIDs: 3.5 cm EDV(Teich): 115.2 ml Ao root area: 6.7 cm2 LVPWd: 1.1 cm ESV(Teich): 51.3 ml EF(Teich): 55.4 % Doppler Measurements & Calculations MV E max hannah: MV dec slope: Ao V2 max: LV V1 max P.9 cm/sec 316.2 cm/sec2 117.1 cm/sec 2.7 mmHg MV A max hannah: MV dec time: 0.17 secAo max PG: LV V1 mean P.4 cm/sec 5.5 mmHg 1.6 mmHg MV E/A: 0.86 Ao V2 mean: LV V1 max: 79.6 cm/sec 81.5 cm/sec Ao mean PG: LV V1 mean: 2.9 mmHg 59.1 cm/sec Ao V2 VTI: 20.3 cm LV V1 VTI: 11.9 cm PA V2 max: TR max hannah: 74.1 cm/sec 283.4 cm/sec PA max P.2 mmHg TR max P.8 mmHg Left Ventricle The left ventricle is normal in size. There is normal left ventricular wall thickness. Left ventricular systolic function is normal. LV EF is 55% to 60%. Doppler measurements suggest impaired left ventricular relaxation, which is associated with grade I/IV or mild diastolic dysfunction. The left ventricular wall motion is normal. There is no thrombus. No ASD,VSD or PFO seen. Right Ventricle The right ventricle is normal in size and function. Atria The right atrium is normal. The left atrial size is normal. Mitral Valve There is no evidence of mitral valve prolapse. There is no vegetation seen on the mitral valve. There is no mitral valve stenosis. There is a trace amount of mitral regurgitation. Aortic Valve There is no aortic valvular vegetation. There is no aortic valve stenosis. No aortic regurgitation is present. Tricuspid Valve There is no tricuspid stenosis. There is a trace to mild amount of tricuspid regurgitation. There is mild pulmonary hypertension by echo. RVSP is 33 to 38 mm of Hg , with RA mean of 0 to 5. Pulmonic Valve There is no pulmonic valvular stenosis. There is no pulmonic valvular regurgitation. Great Vessels The aortic root is normal size. The inferior vena cava appeared small and collapsed with respiration (RAP 0-5 mmHg). Effusions There is no pericardial effusion. : LETICIA ZUNIGA Lakshmi
[2020-02-10 06:58] LABS: ABSOLUTE LYMPHOCYTES (AUTO) 1.2 10^3/uL (0.5-4.7); ABSOLUTE MONOCYTES (AUTO) 0.2 10^3/uL (0.1-1.4); ABSOLUTE NEUT (AUTO) 0.8 10^3/uL (1.7-8.2); BASOPHILS % (AUTO) 0.5 % (0-2); EOSINOPHILS % (AUTO) 2.1 % (0-6); HEMATOCRIT 43.4 % (37.9-51.0); HEMOGLOBIN 14.5 g/dL (13.5-17.0); LYMPHOCYTES % (AUTO) 54.5 % (13-45); MEAN CORPUSCULAR HEMOGLOBIN 27.7 pg (27.0-33.4); MEAN CORPUSCULAR HGB CONC 33.3 g/dL (32.0-36.0); MEAN CORPUSCULAR VOLUME 83 fl (80-97); MONOCYTES % (AUTO) 8.2 % (3-13); PLATELET COUNT 128 10^3/uL (150-450); RED BLOOD COUNT 5.22 10^6/uL (4.35-5.55); RED CELL DISTRIBUTION WIDTH 16.1 % (11.5-14.0); SEGMENTED NEUTROPHILS % (AUTO) 34.7 % (42-78); TOTAL CELLS COUNTED % (AUTO) 100 %; WHITE BLOOD COUNT 2.2 10^3/uL (4.0-10.5)
[2020-02-10 07:31] LABS: ANION GAP 9 (5-19); BLOOD UREA NITROGEN 9 mg/dL (7-20); CALCIUM 8.9 mg/dL (8.4-10.2); CARBON DIOXIDE 24 mmol/L (22-30); CHLORIDE 104 mmol/L (98-107); GLUCOSE 93 mg/dL (75-110); POTASSIUM 4.2 mmol/L (3.6-5.0)
[2020-02-10] MEDS: HEPARIN SODIUM,PORCINE/D5W 25,000 UNIT/250 ML RTUINJ IV PRN (09:38)
[2020-02-10] MEDS: OXYCODONE-ACETAMINOPHEN 5-325 MG TABLET PO PRN (09:42)
[2020-02-10] MEDS: DOCUSATE SODIUM 100 MG CAPSULE PO SCH (10:17)
[2020-02-10] MEDS ORDERED: APIXABAN 5 MG TABLET PO ONE (10:43)
[2020-02-10 11:56] VITALS: BP 125/81
--- NOTE | 2020-02-10 16:27 | PDOC DISCHARGE SUMMARY ---
Impression - Admit/DC Date/PCP Admission Date/Primary Care Provider: 02/07/20 02:15 Discharge Date: 02/10/20 - Discharge Diagnosis (1) Saddle pulmonary embolus Is this a current diagnosis for this admission?: Yes (2) Left femoral vein DVT Is this a current diagnosis for this admission?: Yes (3) Obesity (BMI 30.0-34.9) Is this a current diagnosis for this admission?: Yes (4) Sedentary lifestyle Is this a current diagnosis for this admission?: Yes (5) Hypertension Is this a current diagnosis for this admission?: Yes - Assessment Summary: He has extensive bilateral pulmonary emboli with a saddle PE, as well as extensive left lower extremity thrombus. We will continue the heparin drip for another day to make sure the clots are stabilized, and then if he still doing okay we will transition him over to Eliquis. We have him in the computer is having Medicaid so he should be able to obtain this without any trouble. I have recommended that he get some physical activity into his life somehow. Anticipate discharge home tomorrow. - Additional Information Resuscitation Status: Full Code Discharge Diet: Cardiac Discharge Activity: Slowly Increase Activity Referrals: WENDIE RICHARDSON DO [NO LOCAL MD] - (Dr. Richardson earliest he could make is 02-23-20 @ 1600 Co- pay will be $3.00. 30 minutes visit.) Prescriptions: Apixaban [Eliquis 5 mg Tablet] 5 mg PO BID #60 tablet Home Medications: Apixaban [Eliquis 5 mg Tablet] 5 mg PO BID #60 tablet 02/10/20 History of Present Illiness History of Present Illness: JEFF PRESSLEY is a 45 year old male with past medical history significant for hypertension who presents with a 1 week history of progressive left lower extremity pain and edema/nausea/vomiting/shortness of breath/episodic syncope. Patient found to have saddle PE and extensive left lower extremity DVT clot burden on CTPA and left lower extremity PVL respectively. Patient denies any history of clots in the past denies any family history of clots. He denies any medical history whatsoever except for hypertension and does not take any medications for this. Per my request, ED physician spoke with vascular surgeon and interventional radiologist at [facility] both of whom stated the patient does not need to be transferred and they also disagreed with the notion that the patient has right heart strain which was mentioned by the radiologist on the CTPA dictation. They stated patient should be managed here on anticoagulation. Patient admitted on heparin drip, sent to IMCU. Needs follow-up with hematology. Hypercoagulable work-up started. Hospital Course Hospital Course: The hypercoagulable work-up is still pending. I asked him some questions about his lifestyle. He says he spends his day sitting in a chair watching television all day. He engages in no physical activity. He did not know who his doctor was, and he did not know if he had insurance. We were able to find out who his doctor is and that he is on Medicaid. He has been on heparin drip for 3 full days, so his clot should be stabilized. He has shown no signs of cardiopulmonary decompensation during that time. He will go home on a 6-month course of Eliquis. We got him a follow-up visit with his primary care provider in 1 week. His labs and examination were reassuring and he was discharged in stable condition. Physical Exam Vital Signs: Temp Pulse Resp BP Pulse Ox 98.1 F 82 18 142/78 H 99 02/10/20 11:45 02/10/20 11:45 02/10/20 11:45 02/10/20 11:45 02/10/20 11:45 Intake & Output 02/09/20 02/10/20 02/11/20 06:59 06:59 06:59 Intake Total 2302 2 Balance 2302021 Weight 90.9 kg 91.1 kg General appearance: PRESENT: no acute distress, cooperative, obese Respiratory exam: PRESENT: clear to auscultation rahda, symmetrical, unlabored. ABSENT: accessory muscle use, chest wall tenderness, crackles, prolonged expiratory phas, rhonchi, tachypnea, wheezes Cardiovascular exam: PRESENT: RRR, +S1, +S2 Pulses: PRESENT: normal carotid pulses Vascular exam: PRESENT: normal capillary refill GI/Abdominal exam: PRESENT: normal bowel sounds, soft. ABSENT: distended, guarding, rebound, tenderness Extremities exam: PRESENT: pedal edema, +1 edema - Left lower extremity. ABSENT: clubbing Musculoskeletal exam: PRESENT: normal inspection. ABSENT: deformity Neurological exam: PRESENT: awake, oriented to person, oriented to place, oriented to situation Psychiatric exam: PRESENT: flat affect Skin exam: PRESENT: dry, warm Results Laboratory Results: WBC 2.2 10^3/uL (4.0-10.5) L 02/10/20 06:10 RBC 5.22 10^6/uL (4.35-5.55) 02/10/20 06:10 Hgb 14.5 g/dL (13.5-17.0) 02/10/20 06:10 Hct 43.4 % (37.9-51.0) 02/10/20 06:10 MCV 83 fl (80-97) 02/10/20 06:10 MCH 27.7 pg (27.0-33.4) 02/10/20 06:10 MCHC 33.3 g/dL (32.0-36.0) 02/10/20 06:10 RDW 16.1 % (11.5-14.0) H 02/10/20 06:10 Plt Count 128 10^3/uL (150-450) L 02/10/20 06:10 Lymph % (Auto) 54.5 % (13-45) H 02/10/20 06:10 Citrus % (Auto) 8.2 % (3-13) 02/10/20 06:10 Eos % (Auto) 2.1 % (0-6) 02/10/20 06:10 Baso % (Auto) 0.5 % (0-2) 02/10/20 06:10 Absolute Neuts (auto) 0.8 10^3/uL (1.7-8.2) L 02/10/20 06:10 Absolute Lymphs (auto) 1.2 10^3/uL (0.5-4.7) 02/10/20 06:10 Absolute Monos (auto) 0.2 10^3/uL (0.1-1.4) 02/10/20 06:10 Absolute Eos (auto) 0.0 10^3/uL (0.0-0.6) 02/10/20 06:10 Absolute Basos (auto) 0.0 10^3/uL (0.0-0.2) 02/10/20 06:10 Total Counted 100 02/08/20 08:31 Seg Neutrophils % 34.7 % (42-78) L 02/10/20 06:10 Seg Neuts % (Manual) 39 % (42-78) L 02/08/20 08:31 Lymphocytes % (Manual) 54 % (13-45) H 02/08/20 08:31 Monocytes % (Manual) 4 % (3-13) 02/08/20 08:31 Eosinophils % (Manual) 3 % (0-6) 02/08/20 08:31 Basophils % (Manual) 0 % (0-2) 02/08/20 08:31 Abs Neuts (Manual) 1.1 10^3/uL (1.7-8.2) L 02/08/20 08:31 Abs Lymphs (Manual) 1.5 10^3/uL (0.5-4.7) 02/08/20 08:31 Abs Monocytes (Manual) 0.1 10^3/uL (0.1-1.4) 02/08/20 08:31 Absolute Eos (Manual) 0.1 10^3/uL (0.0-0.6) 02/08/20 08:31 Abs Basophils (Manual) 0.0 10^3/uL (0.0-0.2) 02/08/20 08:31 Platelet Comment ADEQUATE 02/08/20 08:31 Anisocytosis 1+ 02/08/20 08:31 Ovalocytes 1+ 02/08/20 08:31 PT 13.7 SEC (11.4-15.4) 02/06/20 20:15 INR 1.03 02/06/20 20:15 APTT 76.9 SEC (23.5-35.8) H 02/10/20 06:10 Sodium 137.3 mmol/L (137-145) 02/10/20 06:10 Potassium 4.2 mmol/L (3.6-5.0) 02/10/20 06:10 Chloride 104 mmol/L (98-107) 02/10/20 06:10 Carbon Dioxide 24 mmol/L (22-30) 02/10/20 06:10 Anion Gap 9 (5-19) 02/10/20 06:10 BUN 9 mg/dL (7-20) 02/10/20 06:10 Creatinine 1.05 mg/dL (0.52-1.25) 02/10/20 06:10 Est GFR ( Amer) > 60 (>60) 02/10/20 06:10 Est GFR (Non-Af Amer) Cancelled 02/08/20 08:31 Est GFR (MDRD) Non-Af > 60 (>60) 02/10/20 06:10 Glucose 93 mg/dL (75-110) 02/10/20 06:10 Calcium 8.9 mg/dL (8.4-10.2) 02/10/20 06:10 Phosphorus 2.5 mg/dL (2.5-4.5) 02/08/20 09:23 Magnesium 1.8 mg/dL (1.6-2.3) 02/08/20 09:23 Total Bilirubin 0.5 mg/dL (0.2-1.3) 02/06/20 20:15 Direct Bilirubin 0.1 mg/dL (0.0-0.4) 02/06/20 20:15 Neonat Total Bilirubin Not Reportable 02/06/20 20:15 Neonat Direct Bilirubin Not Reportable 02/06/20 20:15 Neonat Indirect Bili Not Reportable 02/06/20 20:15 AST 26 U/L (17-59) 02/06/20 20:15 ALT 15 U/L (<50) 02/06/20 20:15 Alkaline Phosphatase 133 U/L (38-126) H 02/06/20 20:15 Creatine Kinase 109 U/L (55-170) 02/06/20 20:15 CK-MB (CK-2) < 0.22 ng/mL (<4.55) 02/06/20 20:15 Troponin I < 0.012 ng/mL 02/06/20 20:15 Total Protein 8.0 g/dL (6.3-8.2) 02/06/20 20:15 Albumin 4.7 g/dL (3.5-5.0) 02/06/20 20:15 EGFR Cancelled 02/08/20 08:31 Urine Color YELLOW 02/09/20 09:30 Urine Appearance SLIGHTLY-CLOUDY 02/09/20 09:30 Urine pH 5.0 (5.0-9.0) 02/09/20 09:30 Ur Specific [place] 1.031 02/09/20 09:30 Urine Protein 30 mg/dL (NEGATIVE) H 02/09/20 09:30 Urine Glucose (UA) NEGATIVE mg/dL (NEGATIVE) 02/09/20 09:30 Urine Ketones NEGATIVE mg/dL (NEGATIVE) 02/09/20 09:30 Urine Blood NEGATIVE (NEGATIVE) 02/09/20 09:30 Urine Nitrite NEGATIVE (NEGATIVE) 02/09/20 09:30 Urine Bilirubin NEGATIVE (NEGATIVE) 02/09/20 09:30 Urine Urobilinogen 2.0 mg/dL (<2.0) H 02/09/20 09:30 Ur Leukocyte Esterase NEGATIVE (NEGATIVE) 02/09/20 09:30 Urine WBC (Auto) 1 /HPF 02/09/20 09:30 Urine RBC (Auto) 2 /HPF 02/09/20 09:30 Squamous Epi Cells Auto 3 /HPF 02/09/20 09:30 Urine Mucus (Auto) FEW /LPF 02/09/20 09:30 Urine Ascorbic Acid NEGATIVE (NEGATIVE) 02/09/20 09:30 02/06/20 20:15 CK-MB (CK-2) < 0.22 Troponin I < 0.012 Impressions: Venous Doppler Study 02/06/20 19:03 IMPRESSION: Acute DVT beginning in the left distal femoral vein and involving the popliteal vein and the calf veins. Preliminary results was given to the charge nurse by the mri special procedures technologist 02/06/2020 at 2011 hours. Chest/Abdomen CTA 02/06/20 22:28 IMPRESSION: 1. Saddle pulmonary embolus with extensive clot burden throughout the pulmonary arteries. Mild right heart strain. This exam was performed according to our departmental dose-optimization program, which includes automated exposure control, adjustment of the mA and/or kV according to patient size and/or use of iterative reconstruction technique. Head CT 02/06/20 22:29 IMPRESSION: 1. No acute intracranial abnormality identified. This exam was performed according to our departmental dose-optimization program, which includes automated exposure control, adjustment of the mA and/or kV according to patient size and/or use of iterative reconstruction technique. Plan Time Spent: Greater than 30 Minutes Stroke Is this a Stroke Patient?: No Acute Heart Failure Is this a Heart Failure Patient?: No
[2020-02-11 21:36] LABS: PROTEIN C ANTIGEN 78 % (60-150)
[2020-02-12 07:41] LABS: PROTEIN C ACTIVITY 101 % (73-180)
== END 2020-02-10 12:22 | disposition home or self-care (01) | DRG 176 ==
LOC: ER 18:54 → EH 02-07 02:15 → 3S 02-07 03:38
PROVIDERS: ADMIT Internal Medicine; ATTEND Family Medicine
PROC: B24BZZZ Ultrasonography of Heart with Aorta (ICD-10-PCS; principal; 2020-02-09)
PROC: 3E02340 Introduction of Influenza Vaccine into Muscle, Percutaneous Approach (ICD-10-PCS; 2020-02-10)
DX: I26.92 Saddle embolus of pulmonary artery without acute cor pulmonale (principal); I82.412 Acute embolism and thrombosis of left femoral vein; I10 Essential (primary) hypertension; E66.9 Obesity, unspecified; Z23 Encounter for immunization; Z68.30 Body mass index [BMI] 30.0-30.9, adult
CPT/HCPCS: 36415; 70450; 71275; 80048; 80053; 81001; 81241; 82550; 82553; 83520; 83735; 84100; 84484; 85025; 85302; 85610; 85730; 86225; 86235; 90471; 90686; 93005; 93010; 93306; 93971; 96374; 96375; 99285; G0008; J1644; J2270